=== PATIENT | female | born 1980 | race Caucasian/White ===

== ENCOUNTER 2023-09-28 20:23 | Emergency (ER) | payer MEDICAID ==
[~2023-09-28] VITALS: Ht 167.6 cm; Wt 125.0 kg
[2023-09-28 20:49] VITALS: BP 133/65; PULSE 75; RESP 17; TEMP 98; O2SAT 98
[2023-09-28] MEDS: TETanus/Pertussis (Acell)/Diphther VAC/PF (Tdap-Adult) 0.5ml syringe IMVAC ONE (21:37)
== END 2023-09-28 21:44 | disposition home or self-care (01) ==
LOC: ER 20:23
DX: S01.03XA Puncture wound without foreign body of scalp, initial encounter (principal); X58.XXXA Exposure to other specified factors, initial encounter; Y93.89 Activity, other specified; Y92.89 Other specified places as the place of occurrence of the external cause; Y99.8 Other external cause status
CPT/HCPCS: 90471; 90715; 99283

== ENCOUNTER 2024-09-22 15:50 | Emergency (ER) | payer MEDICAID ==
[~2024-09-22] VITALS: Ht 167.6 cm; Wt 104.7 kg
[2024-09-22 15:55] VITALS: TEMP 97.9
[2024-09-22] MEDS ORDERED: silver nitrate applicator stick TP ONE (16:15)
[2024-09-22] MEDS: OLANZapine **IM** 10 mg inj. IM ONE (16:47)
[2024-09-22] MEDS: ketorolac trometh 15mg/ml vial 15 MG/ML ML IV ONE (16:47)
[2024-09-22 16:49] LABS: BASOPHILS # (AUTO) 0.1 X10'3 (0-0.2); BASOPHILS % (AUTO) 0.6 % (0-1); EOSINOPHILS # (AUTO) 0.1 X10'3 (0-0.9); EOSINOPHILS % (AUTO) 1.2 % (0-6); HEMOGLOBIN 13.7 g/dl (12.0-16.0); LYMPHOCYTES # (AUTO) 1.2 X10'3 (1.1-4.8); LYMPHOCYTES % (AUTO) 13.8 % (21-51); MEAN CORPUSCULAR HEMOGLOBIN 28.7 PG (27.0-31.0); MEAN CORPUSCULAR HGB CONC 33.3 g/dL (33.0-36.5); MEAN CORPUSCULAR VOLUME 86.2 FL (78-98); MEAN PLATELET VOLUME 8.9 FL (7.4-10.4); MONOCYTES # (AUTO) 0.5 X10'3 (0-0.9); MONOCYTES % (AUTO) 5.4 % (2-12); NEUTROPHILS # (AUTO) 7.1 X10'3 (1.8-7.7); PLATELET COUNT 285 X10'3 (140-440); RED BLOOD COUNT 4.75 X10'6 (4.20-5.60); RED CELL DISTRIBUTION WIDTH 16.9 % (11.5-14.5)
[2024-09-22 17:01] LABS: ALANINE AMINOTRANSFERASE 17 U/L (12-78); ALBUMIN 3.8 G/DL (3.4-5.0); ALBUMIN/GLOBULIN RATIO 0.8 (1.1-1.5); ALKALINE PHOSPHATASE 81 IU/L (46-116); ANION GAP 13 (8-16); ASPARTATE AMINO TRANSFERASE 22 U/L (10-37); BILIRUBIN,TOTAL 0.5 MG/DL (0.1-1.0); BLOOD UREA NITROGEN 7 MG/DL (7-18); BUN/CREATININE RATIO 9.9 (10.0-20.0); CHLORIDE 104 MMOL/L (99-107); CREATININE 0.71 MG/DL (0.40-0.90); GLUCOSE 110 MG/DL (70-104); LIPASE 25 U/L (16-77); SODIUM 138 MMOL/L (135-145); TOTAL CARBON DIOXIDE 20.6 MMOL/L (24-32); TOTAL PROTEIN 8.6 G/DL (6.4-8.2); eCRCL 96 ML/MIN; eGFR 90 ML/MIN
[2024-09-22 17:18] LABS: POTASSIUM 3.7 MMOL/L (3.5-5.1)
[2024-09-22 17:23] VITALS: BP 127/69; PULSE 51; O2SAT 100
[2024-09-22 17:24] VITALS: RESP 16
== END 2024-09-22 17:54 | disposition home or self-care (01) ==
LOC: ER 15:51
DX: N80.9 Endometriosis, unspecified (principal)
CPT/HCPCS: 36415; 80053; 83690; 85025; 96372; 96374; 99284; J1885; J3490

== ENCOUNTER 2025-05-25 19:19 | Emergency (ER) | payer MEDICAID ==
[~2025-05-25] VITALS: Ht 167.6 cm; Wt 110.4 kg
[2025-05-25 19:29] VITALS: BP 129/92; PULSE 83; RESP 18; O2SAT 99
[2025-05-25] MEDS ORDERED: AMOX-117 PO (20:09)
--- NOTE | 2025-05-25 20:09 | Physician Documentation ---
History of Present Illness ~ Chief Complaint: Back Pain Stated Complaint: TAILBONE PAIN Time Seen by MD: 19:47 Primary Medical Doctor: [facility] Source: patient Mode of Arrival: POV Exam Limitations: no limitations HPI 44-year-old female noticed yesterday morning a pain and a bump between her tailbone and her rectum. Patient was getting a bath and when she sat down she noticed pain. Patient has history of endometriosis and just ending a 2 week menstrual cycle. Patient denies any discharge and has never had this pain before. Medication Reconciliation Allergies: Coded Allergies: No Known Allergies (Unverified , 09/28/23) Past Medical History Past Medical History: No Pertinent History Past Surgical History: noncontributory Lives with: Family Lives In: Home Occupation: unemployed Review of Systems All Other Systems at this time: Reviewed and Negative Gastrointestinal: Reports: other Physical Exam Physical Exam Vital Signs: RN Vital Signs have been reviewed: Yes, Temperature: 98.8, Source: Temporal, Heart Rate: 83, Respiratory Rate: 18, BP: 129/92, Pulse Oximetry: 99, Weight: 110.400 Physical Exam General: Alert, no apparent distress. HEENT: PERRL, EOMI, no injection, moist mucous membranes. Neck: Full range of motion. Respiratory: Lungs clear, no respiratory distress. Chest: No accessory muscle use. Cardiovascular: Regular rate and rhythm, no murmurs. Extremities: Normal range of motion, no deformity. Rectal: No obvious external hemorrhoids no obvious abscesses drainage. Between the tailbone in the rectum, perirectal region a small 2.5 cm in length 1 cm in diameter ropelike, hardened area with no obvious fluctuance but pain with palpation. Neurologic: Oriented x4. Psychiatric: Normal mood and affect. Skin: Normal color, warm and dry. No edema, no ecchymosis. Progress Results/Orders Results/Orders Vital Signs 05/25/25 19:29 Temp 98.8 Pulse 83 Resp 18 B/P (MAP) 129/92 Pulse Ox 99 Medical Decision Making Additional information obtaine: N/A Findings Perirectal abscess, fistula, hemorrhoid were differentials. Patient will be started on antibiotics as it is a very small region although there is pain discussed warm compresses and follow up with primary care. Patient is aware for new or worsening symptoms to return to the ER. Differential Dx:Considerations: Other Departure Time of Disposition: 20:06 Disposition: 01 HOME / SELF CARE / HOMELESS Impression: Primary Impression: Corrie-rectal abscess Condition: Stable Discharge Instructions: Anorectal Abscess Additional Instructions: This area is small and would be very difficult drink currently we will try antibiotics as discussed during our encounter. Monitor for any new or worsening symptoms and feel free to return to the ER. Referrals: NO PRIMARY CARE PROVIDER (PCP) Prescriptions Amox Tr/Potassium Clavulanate (Augmentin 875-125 Tablet) 1 Each Tablet 1 TAB PO Q12H for 10 Days, #20 TAB Prov: SARAHI SANTANA NP 05/25/25 Education Educated: Patient Educated regarding: diagnosis, treatment, need for follow up Signature Scribe Signature: No scribe Attestation: The note accurately reflects work and decisions made by me.Sarahi Santana - MELISSA 05/25/25 20:09 SARAHI SANTANA NP May 25, 2025 20:08
[2025-05-25 20:15] VITALS: TEMP 98.8
[2025-05-25] MEDS: amox tr/potassium clavulanate 875/125mg TAB PO ONE (20:23)
== END 2025-05-25 20:41 | disposition home or self-care (01) ==
LOC: ER 19:20
DX: K61.1 Rectal abscess (principal)
CPT/HCPCS: 99283

== ENCOUNTER 2025-05-31 04:48 | Emergency (ER) | payer MEDICAID ==
[~2025-05-31] VITALS: Ht 165.1 cm; Wt 105.0 kg
[~2025-05-31 04:48] MED LIST: AMOX-117 PO
--- NOTE | 2025-05-31 06:29 | Physician Documentation ---
Addendum CHIEF COMPLAINT/HPI: The patient is a 44-year-old female who presents with ongoing perirectal abscess that was evaluated here on 05/25/2025 and treated with warm compresses and Augmentin. She also complains of new onset hematuria. REVIEW OF SYSTEMS: Constitutional: Denies chills, fatigue, fever, weight gain or weight loss. HEENT: Denies hearing loss, sinus pressure or visual changes. Respiratory: Denies cough, shortness of breath or wheezing. Cardiovascular: Denies chest pain, pain while walking (claudication), edema or palpitations. Gastrointestinal: Denies abdominal pain, blood in stool, constipation, diarrhea, heartburn, loss of appetite, nausea or vomiting. Genitourinary: Denies painful urination (dysuria), excessive amount of urine (polyuria) or urinary frequency. Metabolic/Endocrine: Denies cold intolerance, heat intolerance, excessive thirst (polydipsia) or excessive hunger (polyphagia). Neurological: Denies dizziness, extremity numbness, extremity weakness, headaches, seizures or tremors. Psychiatric: Denies anxiety or depression. Integumentary: Right-sided perirectal abscess. Musculoskeletal: Denies back pain, joint pain, joint swelling or neck pain. Hematologic: Denies easily bleeding, easily bruises, lymphedema or issues with blood clots. Immunologic: Denies food allergies or seasonal allergies. PHYSICAL EXAMINATION: Vitals and nursing note reviewed. Constitutional: General: Patient is awake, alert, oriented x 4 in no acute distress and well appearing. Speech is clear and lucid. Appearance: Normal appearance. Patient is not ill-appearing, toxic-appearing or diaphoretic. HENT: Head: Normocephalic and atraumatic. Mouth: Mucous membranes are moist. Pharynx: Oropharynx is clear. Eyes: General: No scleral icterus. Extraocular Movements: Extraocular movements intact. Pupils: Pupils are equal, round, and reactive to light. Neck: Supple, no Kernig or Brudzinski sign. Cardiovascular: Rate and Rhythm: Normal rate and regular rhythm. Heart sounds: No murmur heard. Pulmonary: Effort: No respiratory distress. Breath sounds: No wheezing, rhonchi or rales. Abdominal: General: There is no distension. Palpations: There is no fluid wave, hepatomegaly or mass. Tenderness: There is no abdominal tenderness. There is no guarding. Musculoskeletal: General: No swelling or deformity. Skin: Coloration: Skin is not jaundiced. Findings: There is a 1-2 cm fluctuant and tender right-sided perirectal abscess. Neurological: Mental Status: Patient is alert. MEDICAL DECISION MAKING: This patient was treated conservatively with warm compresses and Augmentin that has failed. Her abscess has become larger and more painful. It requires incision and drainage. 10:20 a.m.: The abscess burst open spontaneously. I am going to have the patient continue Sitz baths and the remainder of Augmentin which she started four days ago. Urinalysis is within normal limits. Departure Disposition: 01 HOME / SELF CARE / HOMELESS Impression: Primary Impression: Corrie-rectal abscess Condition: Stable Discharge Instructions: Skin Abscess, [id number] Additional Instructions: You have been seen today for a perirectal abscess. Fortunately, it opened spontaneously and did not require a surgical procedure. Please continue Sitz baths and antibiotic. Follow-up with your PCP, as needed. Return here for fever, increased pain or other new/unusual symptoms. Education Educated: Patient Educated regarding: diagnosis, treatment, prognosis TALITA ESTRADA MD May 31, 2025 06:29
[2025-05-31 06:49] LABS: LEUKOCYTE ESTERASE ,URINE NEGATIVE (Neg); NITRITES, URINE NEGATIVE (Neg); OCCULT BLOOD,URINE SMALL (Neg)
[2025-05-31 06:56] LABS: UA COLLECTION TYPE CLN CATCH MIDSTREAM
[2025-05-31 07:11] LABS: MUCUS STRANDS MANY /LPF (Neg); SQUAMOUS EPITHELIAL CELL,UR MODERATE /LPF (FEW)
[2025-05-31 08:18] VITALS: TEMP 98.6
[2025-05-31 09:18] VITALS: BP 120/72; PULSE 64; RESP 16; O2SAT 98
== END 2025-05-31 10:43 | disposition home or self-care (01) ==
LOC: ER 04:49
DX: K61.1 Rectal abscess (principal); R31.9 Hematuria, unspecified
CPT/HCPCS: 81001; 99285; A6258; A6449